=== PATIENT | male | born 1985 | race Caucasian/White ===

== ENCOUNTER 2018-05-04 19:58 | Emergency (ER) | payer MEDICARE ==
--- OUTSIDE RECORDS SUMMARY | 2018-05-04 20:01 | XMS REPORT ---
Author [facility] Address Unknown Phone Unavailable Care Team Providers Care Insurance Underwriter Sales Name Role Phone Unavailable Unavailable Payers Payer Name Policy Type Policy Number Effective Date Expiration Date Problems This patient has no known problems. Allergies, Adverse Reactions, Alerts Allergy Name Allergy Type Status Severity Reaction(s) Onset Date Inactive Date Treating Clinician Comments No Known Allergies DA Active U 2018-03-30 00:00:00 No Known Allergies DA Active U 2016-12-10 00:00:00 Medications This patient has no known medications. Results Test Description Test Time Test Comments Text Results Atomic Results Result Comments - CT C-SPINE W/O CONTRAST 2018-04-05 17:04:00 Name: UDAY RENEE [facility] : 1985 Age/S: 32 / M [address] [facility] Unit #: [id number] Loc: [place] [address] Phys: Noe Lei MD Acct: [id number] Dis Date: Status: REG ER PHONE #: [phone] Exam Date: 04/05/2018 1649 FAX #: [phone] Reason: head injury EXAMS: CPT CODE: [id number] CT C-SPINE W/O CONTRAST 56460 REASON FOR EXAM: head injury EXAM ORDER DATE: 04/05/2018 4:34 PM Ordering Keren: Noe Lei MD PROCEDURE: - CT C-SPINE W/O CONTRAST FINDINGS: CT images of the cervical spine were obtained without IV contrast at 2.5mm. Reconstructed coronal and sagittal images were also provided. Dose reduction techniques were applied The osseous structures are intact. The central canal is patent. The disc spaces are maintained. IMPRESSION: Unremarkable cervical spine. at 1704 Reported and signed by: Yoan Ojeda M.D. CC: Noe Lei MD; Selvin Jamison MD Technologist:Eliza Gay RT(R); NEHEMIAH Wei CTDI: DLP: Trnscb Date/Time: 04/05/2018 (1703) t.SDR.VTL Orig Print D/T: S: 04/05/2018 (1706) CTDI: DLP: PAGE 1 Signed Report - CT MAXIFAC W/O CNT 2018-04-05 17:02:00 Name: UDAY RENEE [facility] : 1985 Age/S: 32 / M [address] [facility] Unit #: [id number] Loc: [place] [address] Phys: Noe Lei MD Acct: [id number] Dis Date: Status: REG ER PHONE #: [phone] Exam Date: 04/05/2018 1649 FAX #: [phone] Reason: facial injury EXAMS: CPT CODE: [id number] CT MAXIFAC W/O CNT 77409 REASON FOR EXAM: facial injury EXAM ORDER DATE: 04/05/2018 4:34 PM Ordering Keren: Noe Lei MD PROCEDURE: - CT MAXIFAC W/O CNT FINDINGS: CT images of the face were obtained without IV contrast at 2.5 mm thickness. Dose reduction techniques were applied The globes are intact. The orbital romano are unremarkable without evidence of orbital blowout fracture. The nasal bone is unremarkable. The mandibles are within normal limits. No evidence of facial fracture The visualized paranasal sinuses are well aerated IMPRESSION: No evidence of facial fracture or radiopaque foreign body. Moderate diffuse soft tissue swelling in the periorbitals more pronounced on the right with minimal subcutaneous emphysema of the right superior orbit. at 1702 Reported and signed by: Yoan Ojeda M.D. CC: Noe Lei MD; Selvin Jamison MD Technologist:Eliza Gay RT(R); NEHEMIAH Wei CTDI: DLP: Trnscb Date/Time: 04/05/2018 (170) t.SDR.VTL Orig Print D/T: S: 04/05/2018 (8125) CTDI: DLP: PAGE 1 Signed Report - CT HEAD/BRAIN W/O CONT 2018-04-05 16:56:00 Name: UDAY RENEE [facility] : 1985 Age/S: 32 / M [address] [facility] Unit #: [id number] Loc: [place] [address] Phys: Noe Lei MD Acct: [id number] Dis Date: Status: REG ER PHONE #: [phone] Exam Date: 04/05/2018 1649 FAX #: [phone] Reason: FACE INJURY EXAMS: CPT CODE: [id number] CT HEAD/BRAIN W/O CONT 79045 REASON FOR EXAM: FACE INJURY EXAM ORDER DATE: 04/05/2018 1:53 PM Ordering M.DTrav: Noe Lei MD PROCEDURE: - CT HEAD/BRAIN W/O CONT COMPARISON: FINDINGS: CT images of the brain were obtained without IV contrast. Dose reduction techniques were applied. The brain parenchyma is within normal limits. The miller-white matter delineation is unremarkable. The ventricles, cisterns, and sulci are unremarkable. There is no evidence of hemorrhage, mass, mass effect. There is no evidence of acute or old infarct. The calvarium is intact. IMPRESSION: Unremarkable brain. Diffuse subcutaneous edema of the periorbital regions normal pronounced on the right at 1656 Reported and signed by: Yoan Ojeda M.D. CC: Noe Lei MD; Selvin Jamison MD Technologist:Eliza Gay RT(R); NEHEMIAH Wei CTDI: DLP: Trnscb Date/Time: 04/05/2018 (7356) [email or web address].VTL Orig Print D/T: S: 04/05/2018 (6926) CTDI: DLP: PAGE 1 Signed Report TROPONIN-I 2018-03-30 17:00:00 TROPONIN-I (test code=TROPI) <0.015 ng/mL 0-0.045 [id number] 17:00:00* Test Item Value Reference Range Comments ACETAMINOPHEN (test code=ACET) < 10 mcg/mL 10-30 A RANGE OF 10-30 mcg/mL IS A THERAPEUTIC RANGE. TOXIC CONCENTRATIONS: >150 mcg/mL AT 4 HOURS AFTER INGESTION >=50 mcg/mL AT 12 HOURS AFTER INGESTION [id number] 17:00:00* Test Item Value Reference Range Comments SALICYLATE (test code=MEGHAN) 4.7 mg/dL 2.8-20.0 BASIC METABOLIC [id number] 16:52:00* Test Item Value Reference Range Comments SODIUM (test code=NA) 140 mmol/L 136-145 POTASSIUM (test code=K) 4.0 mmol/L 3.5-5.1 CHLORIDE (test code=CL) 106.0 mmol/L 98-107 CARBON DIOXIDE (test code=CO2) 25.0 mmol/L 21-32 ANION GAP (test code=GAP) 13.0 10-20 GLUCOSE (test code=GLU) 89 mg/dL 74-106 BLOOD UREA NITROGEN (test code=BUN) 5 mg/dL 7-18 GLOMERULAR FILTRATION RATE (test code=GFR) > 60 mL/min >=60 Estimated GFR by using Modified MDRD formula.Chronic kidney disease is defined as either kidney damageor GFR <60 mL/min/1.73 m2 for >3 months. CREATININE (test code=CREAT) 1.00 mg/dL 0.7-1.3 BUN/CREATININE RATIO (test code=BUN/CREA) 5.0 10-20 CALCIUM (test code=CA) 9.5 mg/dL 8.5-10.1 HEPATIC FUNCTION [id number] 16:52:00* Test Item Value Reference Range Comments TOTAL PROTEIN (test code=PROT) 8.0 gram/dL 6.4-8.2 ALBUMIN (test code=ALB) 4.5 g/dL 3.4-5.0 GLOBULIN (test code=GLOB) 3.5 gram/dL 2.7-4.2 ALBUMIN/GLOBULIN RATIO (test code=A/G) 1.3 0.75-1.50 BILIRUBIN TOTAL (test code=BILT) 0.50 mg/dL 0.0-1.0 BILIRUBIN DIRECT (test code=BILD) 0.14 mg/dL 0.0-0.20 SGOT/AST (test code=AST) 6 IUnit/L 15-37 SGPT/ALT (test code=ALT) 16 IUnit/L 12-78 ALKALINE PHOSPHATASE TOTAL (test code=ALKP) 90 IUnit/L 45-117 Note change in reference range due to change in reagent. [id number] 16:52:00* Test Item Value Reference Range Comments ALCOHOL (test code=ALC) 6 mg/dL 0.0-3.0 INTERPRETIVE DATA NOTE: POSITIVE SCREENING RESULTS SHOULD BE CONSIDERED PRESUMPTIVE.WHEN COLLECTED FOR MEDICAL PURPOSES ONLY. SPECIMEN WILL NOTBE COLLECTED BY CHAIN OF CUSTODY.IF A CONFIRMATION OF POSITIVE RESULTS IS DESIRED, ACONFIRMATION TEST MUST BE REQUESTED BY THE PHYSICIAN AT ANADDITIONAL CHARGE TO THE PATIENT. BASIC METABOLIC [id number] 16:45:00* Test Item Value Reference Range Comments SODIUM (test code=NA) 140 mmol/L 136-145 POTASSIUM (test code=K) 4.0 mmol/L 3.5-5.1 CHLORIDE (test code=CL) 106.0 mmol/L 98-107 CARBON DIOXIDE (test code=CO2) mmol/L 21-32 ANION GAP (test code=GAP) 10-20 GLUCOSE (test code=GLU) mg/dL 74-106 BLOOD UREA NITROGEN (test code=BUN) mg/dL 7-18 GLOMERULAR FILTRATION RATE (test code=GFR) mL/min >=60 CREATININE (test code=CREAT) mg/dL 0.7-1.3 BUN/CREATININE RATIO (test code=BUN/CREA) 10-20 CALCIUM (test code=CA) mg/dL 8.5-10.1 HEPATIC FUNCTION [id number] 16:45:00* Test Item Value Reference Range Comments TOTAL PROTEIN (test code=PROT) gram/dL 6.4-8.2 ALBUMIN (test code=ALB) g/dL 3.4-5.0 GLOBULIN (test code=GLOB) gram/dL 2.7-4.2 ALBUMIN/GLOBULIN RATIO (test code=A/G) 0.75-1.50 BILIRUBIN TOTAL (test code=BILT) mg/dL 0.0-1.0 BILIRUBIN DIRECT (test code=BILD) mg/dL 0.0-0.20 SGOT/AST (test code=AST) IUnit/L 15-37 SGPT/ALT (test code=ALT) IUnit/L 12-78 ALKALINE PHOSPHATASE TOTAL (test code=ALKP) IUnit/L 45-117 [id number] 16:45:00* Test Item Value Reference Range Comments ALCOHOL (test code=ALC) mg/dL 0-3 CBC W/O [id number] 16:33:00* Test Item Value Reference Range Comments WHITE BLOOD CELL (test code=WBC) 10.6 K/mm3 4.5-12.5 RED BLOOD CELL (test code=RBC) 5.78 mill/mm3 4.0-5.8 HEMOGLOBIN (test code=HGB) 17.5 gram/dL 13.0-17.5 HEMATOCRIT (test code=HCT) 53.0 % 42.0-52.0 MEAN CELL VOLUME (test code=MCV) 91.7 fL 80-98 MEAN CELL HGB (test code=MCH) 30.3 picogram 27.0-33.0 MEAN CELL HGB CONCETRATION (test code=MCHC) 33.0 gram/dL 33.0-36.0 RED CELL DISTRIBUTION WIDTH (test code=RDW) 11.9 % 11.6-16.2 PLATELET COUNT (test code=PLT) 286 K/mm3 150-450 MEAN PLATELET VOLUME (test code=MPV) 10.6 fL 6.7-11.0 URINALYSIS [id number] 16:31:00* Test Item Value Reference Range Comments UA COLOR (test code=COLU) LIGHT YELLOW YELLOW UA APPEARANCE (test code=APPU) CLEAR CLEAR UA GLUCOSE DIPSTICK (test code=DGLUU) NEGATIVE mg/dL NEGATIVE UA BILIRUBIN DIPSTICK (test code=BILU) NEGATIVE mg/dL NEGATIVE UA KETONE DIPSTICK (test code=KETU) 5 (Trace) mg/dL NEGATIVE UA SPECIFIC GRAVITY (test code=SGU) 1.003 1.001-1.035 UA BLOOD DIPSTICK (test code=VENTURA) Negative NEGATIVE UA PH DIPSTICK (test code=SHERMAN) 7.0 5.0-8.0 UA PROTEIN DIPSTICK (test code=PROU) Negative mg/dL NEGATIVE UA UROBILINIOGEN DIPSTICK (test code=URO) NEGATIVE mg/dL NEGATIVE UA NITRITE DIPSTICK (test code=ROSALBA) NEGATIVE NEGATIVE UA LEUKOCYTE ESTERASE W REFLEX (test code=LEUUR) NEGATIVE NEGATIVE UA WBC (test code=WBCU) 0-5 #/HPF 0-5 UA RBC (test code=RBCU) 0-2 #/HPF 0-5 UA EPITHELIAL CELLS (test code=EPIU) Rare (0-1/hpf) per HPF FEW UA BACTERIA (test code=BACU) NONE SEEN #/HPF NONE Urine Source? Clean CatchDRUGS OF ABUSE SCREEN [id number] 16:31:00* Test Item Value Reference Range Comments URN COCAINE (test code=COCAURN) NEGATIVE <300 ng/mL URN CANNABINOIDS (test code=CANNABURN) POSITIVE <50 ng/mL This test provides only a preliminary test result. A morespecific alternate chemical method must be used in order toobtain a confirmed analytical result. Gas chromatography/mass spectrometry (GC/MS) is thepreferred confirmatory method. Other chemical confirmationmethods are available. Clinical consideration and professional judgment should be applied to any drug of abusetest result, particularly when preliminary positive resultsare used.Unconfirmed screening results must not be used fornon-medical purposes (e.g., employment testing, legaltesting). URN AMPHETAMINE (test code=AMPHETURN) NEGATIVE <1000 ng/mL URN BARBITURATE (test code=BARBITURN) NEGATIVE <200 ng/mL URN BENZODIAZEPINE (test code=BENZOURN) NEGATIVE <200 ng/mL URN OPIATES (test code=OPIATURN) NEGATIVE <300 ng/mL URN PHENCYCLIDINE (PCP) (test code=PHENCURN) NEGATIVE <25 ng/mL URN METHADONE (test code=METHAURN) NEGATIVE <300 ng/mL Urine Source? Clean CatchURINALYSIS [id number] 15:56:00* Test Item Value Reference Range Comments UA COLOR (test code=COLU) LIGHT YELLOW YELLOW UA APPEARANCE (test code=APPU) CLEAR CLEAR UA GLUCOSE DIPSTICK (test code=DGLUU) NEGATIVE mg/dL NEGATIVE UA BILIRUBIN DIPSTICK (test code=BILU) NEGATIVE mg/dL NEGATIVE UA KETONE DIPSTICK (test code=KETU) 5 (Trace) mg/dL NEGATIVE UA SPECIFIC GRAVITY (test code=SGU) 1.003 1.001-1.035 UA BLOOD DIPSTICK (test code=VENTURA) Negative NEGATIVE UA PH DIPSTICK (test code=SHERMAN) 7.0 5.0-8.0 UA PROTEIN DIPSTICK (test code=PROU) Negative mg/dL NEGATIVE UA UROBILINIOGEN DIPSTICK (test code=URO) NEGATIVE mg/dL NEGATIVE UA NITRITE DIPSTICK (test code=ROSALBA) NEGATIVE NEGATIVE UA LEUKOCYTE ESTERASE W REFLEX (test code=LEUUR) NEGATIVE NEGATIVE UA WBC (test code=WBCU) 0-5 #/HPF 0-5 UA RBC (test code=RBCU) 0-2 #/HPF 0-5 UA EPITHELIAL CELLS (test code=EPIU) Rare (0-1/hpf) per HPF FEW UA BACTERIA (test code=BACU) NONE SEEN #/HPF NONE Urine Source? Clean CatchDRUGS OF ABUSE SCREEN [id number] 15:56:00* Test Item Value Reference Range Comments URN COCAINE (test code=COCAURN) <300 ng/mL URN CANNABINOIDS (test code=CANNABURN) <50 ng/mL URN AMPHETAMINE (test code=AMPHETURN) <1000 ng/mL URN BARBITURATE (test code=BARBITURN) <200 ng/mL URN BENZODIAZEPINE (test code=BENZOURN) <200 ng/mL URN OPIATES (test code=OPIATURN) <300 ng/mL URN PHENCYCLIDINE (PCP) (test code=PHENCURN) <25 ng/mL URN METHADONE (test code=METHAURN) <300 ng/mL Urine Source? Clean CatchURINALYSIS [id number] 15:53:00* Test Item Value Reference Range Comments UA COLOR (test code=COLU) LIGHT YELLOW YELLOW UA APPEARANCE (test code=APPU) CLEAR CLEAR UA GLUCOSE DIPSTICK (test code=DGLUU) NEGATIVE mg/dL NEGATIVE UA BILIRUBIN DIPSTICK (test code=BILU) NEGATIVE mg/dL NEGATIVE UA SPECIFIC GRAVITY (test code=SGU) 1.003 1.001-1.035 UA BLOOD DIPSTICK (test code=VENTURA) Negative NEGATIVE UA PH DIPSTICK (test code=SHERMAN) 7.0 5.0-8.0 UA PROTEIN DIPSTICK (test code=PROU) Negative mg/dL NEGATIVE UA UROBILINIOGEN DIPSTICK (test code=URO) NEGATIVE mg/dL NEGATIVE UA NITRITE DIPSTICK (test code=ROSALBA) NEGATIVE NEGATIVE UA LEUKOCYTE ESTERASE W REFLEX (test code=LEUUR) NEGATIVE NEGATIVE UA WBC (test code=WBCU) per HPF 0-5 UA RBC (test code=RBCU) 0-2 #/HPF 0-5 Urine Source? Clean CatchDRUGS OF ABUSE SCREEN [id number] 15:53:00* Test Item Value Reference Range Comments URN COCAINE (test code=COCAURN) <300 ng/mL URN CANNABINOIDS (test code=CANNABURN) <50 ng/mL URN AMPHETAMINE (test code=AMPHETURN) <1000 ng/mL URN BARBITURATE (test code=BARBITURN) <200 ng/mL URN BENZODIAZEPINE (test code=BENZOURN) <200 ng/mL URN OPIATES (test code=OPIATURN) <300 ng/mL URN PHENCYCLIDINE (PCP) (test code=PHENCURN) <25 ng/mL URN METHADONE (test code=METHAURN) <300 ng/mL Urine Source? Clean Catch- CT HEAD/BRAIN W/O [id number] 14:49:00 Name: UDAY RENEE [facility] : 1985 Age/S: 32 / M [address] [facility] Unit #: [id number] Loc: [place] [address] Phys: Klever Jamison MD Acct: [id number] Di s Date: Status: REG ER PHONE #: Exam Date: 03/30/2018 1403 FAX #: Reason: headache trauma EXAMS: CPT CODE: [id number] CT HEAD/BRAIN W/O CONT 02132 EXAM: CT of the head; INFORMATION: Trauma, headache; TECHNIQUE AND FINDINGS: CT dose reduction protocol; The ventricles are symmetric and of normal diameter; normal width of basilar cisterns and sulci; normal g ray/white matter differentiation; no evidence of intra or extra-axial hemo rrhage, mass lesion or midline shift. Bone windows show no abnormali ties. IMPRESSION: Normal CT scan of the head. at 1449 Reported and signed by: Tereso Martinez M.D. CC: Selvin Jamison MD Technologist:Trey Jovel RT(R),(MR),(CT); CTDI: DLP: Trnscb Date/Time: 03/30/2018 (9842) [place] Orig Print D/T: S: 03/30/2018 (3249) CTDI: DLP: PAGE 1 Signed Report
[2018-05-04] MEDS ORDERED: DIVALPROEX SOD250 MG PO (21:40)
[2018-05-04] MEDS ORDERED: BENZTROPINE MESY1 MG PO (21:40)
[2018-05-04] MEDS ORDERED: CLONAZEPAM0.5 MG PO (21:40)
[2018-05-04] MEDS ORDERED: OLANZAPINE5 MG PO (21:43)
[2018-05-04 22:09] VITALS: BP 121/85
== END 2018-05-04 22:15 | disposition home or self-care (01) ==
LOC: ER 19:58
DX: F20.2 Catatonic schizophrenia (principal); F17.210 Nicotine dependence, cigarettes, uncomplicated
CPT/HCPCS: 99282